=== PATIENT | male | born 1955 | race Caucasian/White ===

== ENCOUNTER 2025-05-09 17:33 | Observation (INO) | payer OTHER ==
[~2025-05-09] VITALS: Ht 180.3 cm; Wt 93.4 kg
[2025-05-09 18:07] LABS: BASOPHILS ABSOLUTE AUTO 0.08 K/mm3 (0.00-0.23); BASOPHILS PERCENT AUTO 1 % (0-2); EOSINOPHILS ABSOLUTE AUTO 0.72 K/mm3 (0.00-0.68); EOSINOPHILS PERCENT AUTO 7 % (0-6); Hematocrit 33.7 % (37.0-53.0); Hemoglobin 11.1 g/dL (13.5-17.5); IMMATURE GRAN ABSOLUTE AUTO 0.12 K/mm3 (0.00-0.10); IMMATURE GRAN PERCENT AUTO 1 % (0-1); LYMPHOCYTES ABSOLUTE AUTO 1.68 K/mm3 (0.84-5.20); LYMPHOCYTES PERCENT AUTO 17 % (21-46); MONOCYTES ABSOLUTE AUTO 0.76 K/mm3 (0.16-1.47); MONOCYTES PERCENT AUTO 8 % (4-13); Mean Corpuscular HGB Conc 32.9 g/dL (31.5-36.5); Mean Corpuscular Volume 90 fL (80-100); NEUTROPHILS ABSOLUTE AUTO 6.57 K/mm3 (1.96-9.15); NEUTROPHILS PERCENT AUTO 66 % (41-73); NRBC ABSOLUTE 0.04 K/mm3 (0.00-0.02); NRBC Auto 0.4 /100 WBC (0.0-0.2); RDW Coefficient Variation 13.7 % (11.7-14.2); RDW Standard Deviation 45.0 fL (35.1-46.3)
[2025-05-09 18:24] LABS: Alanine Aminotransfer (ALT/SGP 75.0 U/L (12-78); Albumin, Blood 2.9 g/dL (3.4-5.0); Albumin/Globulin Ratio 0.7 (0.8-1.8); Anion Gap 8.0 mmol/L (3-11); Aspartate Aminotrans (AST/SGOT 60.0 U/L (12-37); Bilirubin, Total 1.3 mg/dL (0.1-1.0); Blood Urea Nitrogen 16.0 mg/dL (8-24); CO2, Blood 24.0 mmol/L (21-32); Calcium, Blood 8.0 mg/dL (8.5-10.1); Chloride, Blood 104.0 mmol/L (98-108); Creatinine, Blood 1.14 mg/dL (0.60-1.20); Globulin, Blood 4.3 g/dL (2.2-4.0); Glucose, Blood 118.0 mg/dL (70-99); Potassium, Blood 3.9 mmol/L (3.5-5.5); Sodium, Blood 132.0 mmol/L (136-145); Total Protein, Blood 7.2 g/dL (6.4-8.2)
[2025-05-09 18:25] LABS: Prothrombin Time Results 13.0 Sec (9.7-11.5)
[2025-05-09 18:26] LABS: Platelet Count 47 K/mm3 (150-400)
[2025-05-09] MEDS ORDERED: Bivalirudin 250 MG in NS 50 ML IV SCH (19:45)
[2025-05-09] MEDS ORDERED: NS 500 ML IV ONE (19:59)
[2025-05-09] MEDS ORDERED: NS 1,000 ML IV ONE ×4 (19:59→21:08)
[2025-05-09] MEDS ORDERED: Heparin Sodium 1000 Units/ML 10ML MDV ONE (19:59)
[2025-05-09] MEDS ORDERED: Nitroglycerin 2 MG/20 ML BTL ONE (19:59)
[2025-05-09] MEDS ORDERED: FentaNYL Citrate 50 MCG/ML 2 ML Injection ONE (20:08)
[2025-05-09] MEDS ORDERED: Midazolam HCl 1MG / ML 2ML Vial ONE (20:08)
[2025-05-09] MEDS ORDERED: NS 100 ML IV ONE (20:08)
[2025-05-09 20:26] VITALS: BP 115/76
[2025-05-09] MEDS ORDERED: Alteplase Recombinant 2 MG / Vial ONE (21:01)
[2025-05-09 21:33] LABS: Hematocrit 25.5 % (37.0-53.0); Hemoglobin 8.6 g/dL (13.5-17.5)
--- NOTE | 2025-05-09 21:59 | NUR ---
Arrival/Transfer report received from MEDICAL REIMBURSEMENT SPECIALIST prior to patient arrival to unit and the MEDICAL REIMBURSEMENT SPECIALIST stated that they would be giving report to receiving hospital. Patient arrives from [facility] stable and talking, patient denies any pain, cp, or sob at this time. Groin site c/d/i, soft. Family to bedside, vital signs 117/70, HR 106, sats 96%. Lung sounds clear, pt on RA. No pulses in R foot and foot in cool to touch. 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 pt had clots removed from r leg in [facility], pt is on angiomax gtt per orders and will remain on angiomax gtt for the duration of the transport per Dr. Alvarenga. Transport team here @ 2199. pt is being transferred to [facility] in [place]. pt transferred from [facility] to [facility] via sheet draw. pt left with transport crew @ 2034. All pt belongings, medications, and paperwork left with the pt.
== END 2025-05-09 22:35 | disposition short-term general hospital (02) ==
LOC: ER 17:33 → ICUE 17:34
PROVIDERS: Emergency Medicine; ADMIT Radiology Diagnostic Radiology
DX: I74.3 Embolism and thrombosis of arteries of the lower extremities (principal); D75.829 Heparin-induced thrombocytopenia, unspecified
CPT/HCPCS: 37184; 37185; 75716; 75774; 76937; 80053; 85014; 85018; 85025; 85610; 85730; 86850; 86900; 86901; 93005; 93010; 93926; 99152; 99153; 99285-25; C1757; C1760; C1769; C1887; C1894; J0583; J1644; J2250; J2997; J3010; J7030; J7050; Q9967